=== PATIENT | female | born 1965 | race Caucasian/White ===

== ENCOUNTER → 2023-04-13 | Outpatient (CLI) | payer BC ==
--- NOTE | 2023-04-14 08:26 | MM ---
Reason for Exam: Screening (asymptomatic). Last screening mammogram was performed 12 month(s) ago. Patient History: Menarche at age 11. First Full-Term at age 26. Hysterectomy at age 46. Postmenopausal. Patient has history of breast feeding. Other cancer, age 43. Other cancer, age 48. Other cancer, age 52. Currently using Estrogen and Progesterone, starting at age 52. Risk Values: Deepika 5 year model risk: 1.5%. NCI Lifetime model risk: 8.3%. Prior Study Comparison: 02/16/2019 Bilateral Screening Mammogram, [facility] . 02/28/2019 Right Diagnostic Mammogram, [facility] . 03/18/2021 Bilateral Screening Mammogram, [facility] . 04/12/2022 Bilateral Screening Mammogram, [facility] . Tissue Density: The breast tissue is extremely dense which could obscure a lesion on mammography. Findings: Analyzed By CAD. There is no suspicious group of microcalcifications or new suspicious mass in either breast. Overall Assessment: Negative, BI-RAD 1 Management: Screening Mammogram of both breasts in 1 year. . Patient should continue monthly self-breast exams. A clinical breast exam by your physician is recommended on an annual basis. This exam should not preclude additional follow-up of suspicious palpable abnormalities. Note on Deepika scores and lifetime risk: 1. A Deepika score greater than 3% is considered moderate risk. If this is the case, consider specialist referral to assess eligibility for a risk reducing agent. 2. If overall lifetime risk for the development of breast cancer is 20% or higher, the patient may qualify for future screening with alternating mammogram and breast MRI. Electronically signed and approved by: Roger John M.D. Radiologis
--- NOTE | 2023-04-14 09:36 | BD ---
EXAMINATION TYPE: Axial Bone Density DATE OF EXAM: 04/13/2023 CLINICAL HISTORY: 57 years old Female. ICD-10 CODE: , M81.0 AGE-RELATED OSTEOPOROSI Height: 68 Weight: 162.1 FRAX RISK QUESTIONS: Alcohol (3 or more units per day): no Family History (Parent hip fracture): no Glucocorticoids (More than 3mos): no History of Fracture in Adulthood: no Secondary Osteoporosis: 1. Type 1 Diabetes: no 2. Hyperthyroidism: no 3. Menopause before 45: no 4. Malnutrition: no 5. Chronic liver disease: no Rheumatoid Arthritis: no Current Tobacco Use: no RISK FACTORS HISTORY OF: Hip Fracture (Right/Left): no Spine Fracture: no History of Wrist Fracture: no Surgery to Spine/Hip(right/left)/Wrist (right/left): no Family History of Osteoporosis: no Active: yes Diet low in dairy products/other sources of calcium: yes Postmenopausal woman: yes Take estrogen and/or progesterone medications: Ale dial How long: past 5 years Lost more than 2 inches in height since high school: yes Frequent falls: no Poor Health: no Hyperparathyroidism: no Adrenal Insufficiency: no MEDICATIONS: Prednisone or other steroids: no Thyroid Medications: no Osteoporosis Medications: Prolia every 6 months How Long: Past 5 years Additional Medications: BP Meds, Ale dial, Fish Oil, Additional History: EXAM MEASUREMENTS: Bone mineral densitometry was performed using the [place] Toxicology System. Bone mineral density as measured about the Lumbar spine is: ----- L1-L4(G/cm2): 0.985 T Score Values are as follows: ----- L1: -1.6 ----- L2: -2.2 ----- L3: -1.5 ----- L4: -1.4 ----- L1-L4: -1.6 Z Score Values are as follows: ----- L1: -0.8 ----- L2: -1.4 ----- L3: -0.6 ----- L4: -0.5 ----- L1-L4: -0.8 Baseline Study Bone mineral density about the R hip (g/cm2): 0.918 Bone mineral density about the L hip (g/cm2): 0.975 T Score values are as follows: -----R Neck: -1.1 -----L Neck: -0.8 -----R Total: -0.7 -----L Total: -0.3 Z Score values are as follows: -----R Neck: 0.0 -----L Neck: 0.3 -----R Total: 0.0 -----L Total: 0.4 Baseline Study FRAX%s: The graph provided illustrates a 7.1% chance for a major osteoporotic fx and a 0.4% chance fo r the hips probability for fx in 10 years time. IMPRESSION: Osteopenia (T Score between -2.5 and -1). There is slightly increased risk of fracture and the patient may be considered for treatment. Re-Screen 2-5 years. NOTE: T-SCORE=SD OF THE YOUNG ADULT MEAN.
== END | disposition home or self-care (01) ==
LOC: RADMAMWWP 07:13
PROVIDERS: ATTEND Family Medicine
DX: Z12.31 Encounter for screening mammogram for malignant neoplasm of breast (principal); M81.0 Age-related osteoporosis without current pathological fracture; M85.89 Other specified disorders of bone density and structure, multiple sites; Z78.0 Asymptomatic menopausal state
CPT/HCPCS: 77063; 77067; 77080

== ENCOUNTER 2024-01-18 08:30 | Day surgery (SDC) | payer BC ==
[2024-01-16 12:55] VITALS: BMI 22.1
[~2024-01-18 08:30] MED LIST: LIDOCAINE 1% (10MG/ML) FOR IV START INTRADERMA PRN
[2024-01-18 08:53] VITALS: RESP 16; TEMP 98.2
[2024-01-18] MEDS: LACTATED RINGERS 1,000 ML IV SCH (09:05)
[2024-01-18] MEDS ORDERED: PROPOFOL 10 MG/ML 20 ML VIAL IV ONE (09:30)
--- NOTE | 2024-01-18 09:35 | P.GSHP ---
History of Present Illness H&P Date: 01/18/24 CHIEF COMPLAINT: Colon screen HISTORY OF PRESENT ILLNESS: The patient is a 58-year-old female who presents for colon screen. Lower endoscopy was offered for further evaluation and management. PAST MEDICAL HISTORY: Please see list. PAST SURGICAL HISTORY: Please see list. MEDICATIONS: Please see list. ALLERGIES: Please see list. SOCIAL HISTORY: No illicit drug use FAMILY HISTORY: No reports of Crohn disease or ulcerative colitis. REVIEW OF ORGAN SYSTEMS: CONSTITUTIONAL: No reports of fevers or chills. PHYSICAL EXAM: VITAL SIGNS: Stable GENERAL: Well-developed pleasant in no acute distress. HEENT: No scleral icterus. Extraocular movements grossly intact. Moist buccal mucosa. NECK: Supple without lymphadenopathy. CHEST: Unlabored respirations. Equal bilateral excursions. CARDIOVASCULAR: Regular rate and rhythm. Distal 2+ pulses. ABDOMEN: Soft, nontender, nondistended. MUSCULOSKELETAL: No clubbing, cyanosis, or edema. ASSESSMENT: 1. Colon screen. PLAN: 1. Recommend proceeding with a lower endoscopy Past Medical History Past Medical History: Cancer, Hypertension Additional Past Medical History / Comment(s): skin CA History of Any Multi-Drug Resistant Organisms: None Reported Past Surgical History: Hysterectomy Additional Past Surgical History / Comment(s): colonoscopy,bunnionectomy,ectopic repair Past Anesthesia/Blood Transfusion Reactions: No Reported Reaction Additional Past Anesthesia/Blood Transfusion Reaction / Comment(s): no poblems with blood transfusions Smoking Status: Never smoker - Past Family History Mother Family Medical History: No Reported History Father Family Medical History: Cancer Additional Family Medical History / Comment(s): skin Medications and Allergies Home Medications Medication Instructions Recorded Confirmed Type Ascorbic Acid [Vitamin C] 1,000 mg PO DAILY 01/16/24 01/18/24 History Cholecalciferol [Vitamin D3 (25 25 mcg PO DAILY 01/16/24 01/18/24 History Mcg = 1000 Iu)] Denosumab [Prolia] 60 mg SQ Q180D 01/16/24 01/18/24 History Lisinopril-Hctz 10-12.5 mg 1 tab PO DAILY 01/16/24 01/18/24 History [Zestoretic 10-12.5] Magnesium 200 mg PO DAILY 01/16/24 01/18/24 History estradioL [Estrace] 1 mg PO DAILY 01/16/24 01/18/24 History Allergies Allergy/AdvReac Type Severity Reaction Status Date / Time No Known Allergies Allergy Verified 01/18/24 08:45 Surgical - Exam Vital Signs Temp Pulse Resp BP Pulse Ox 98.2 F 82 16 164/95 97 01/18/24 08:47 01/18/24 08:47 01/18/24 08:47 01/18/24 08:47 01/18/24 08:47
--- NOTE | 2024-01-18 09:58 | P.PCN ---
Date of Procedure: 01/18/24 Description of Procedure: PREOPERATIVE DIAGNOSIS: Colonoscopy screening. POSTOPERATIVE DIAGNOSIS: Colonoscopy screening. Internal hemorrhoids grade 3 External hemorrhoids, grade 3 OPERATION: Colonoscopy to the cecum, ileocecal valve and appendiceal orifice. SURGEON: Pebbles Hernandez MD. ANESTHESIA: MAC. INDICATIONS: The patient is a 58-year-old female who presents for colonoscopy screening. Last colonoscopy 10 years ago. Benefits and risks were described and informed consent was obtained. DESCRIPTION OF PROCEDURE: The patient had undergone Gatorade prep. The patient had been brought into the operating room and laid in the left lateral decubitus position. After adequate intravenous sedation, the rectum was examined with 2% lidocaine jelly. External hemorrhoids were encountered. The rectal tone was within normal limits. No lesions were palpated in the rectal vault. An Olympus colonoscope was advanced until the cecum, ileocecal valve and appendiceal orifice were clearly viewed. The colon was highly redundant. The prep was good. No scattered diverticulosis was encountered. No colonic polyps were found. No evidence of focal colitis was found. Retroflexion of the scope demonstrated grade 1 internal hemorrhoids without active bleeding or inflammation. The colon was desufflated. The patient had tolerated the procedure well. Withdrawal time was over 6 minutes. FINDINGS: Aronchick preparation quality scale 2 (1-5) Internal hemorrhoids, grade 3 External hemorrhoids, grade 3 No sigmoid diverticulosis Highly redundant sigmoid colon No arteriovenous malformations. No adenomatous polyps. No focal colitis. RECOMMENDATIONS: Lower endoscopy 10 years, 2033 Plan - Discharge Summary Discharge Rx Participant: No New Discharge Prescriptions: Continue estradioL [Estrace] 1 mg PO DAILY Lisinopril-Hctz 10-12.5 mg [Zestoretic 10-12.5] 1 tab PO DAILY Magnesium 200 mg PO DAILY Ascorbic Acid [Vitamin C] 1,000 mg PO DAILY Denosumab [Prolia] 60 mg SQ Q180D Cholecalciferol [Vitamin D3 (25 Mcg = 1000 Iu)] 25 mcg PO DAILY Discharge Medication List Ascorbic Acid [Vitamin C] 1,000 mg PO DAILY 01/16/24 [History] Cholecalciferol [Vitamin D3 (25 Mcg = 1000 Iu)] 25 mcg PO DAILY 01/16/24 [History] Denosumab [Prolia] 60 mg SQ Q180D 01/16/24 [History] Lisinopril-Hctz 10-12.5 mg [Zestoretic 10-12.5] 1 tab PO DAILY 01/16/24 [History] Magnesium 200 mg PO DAILY 01/16/24 [History] estradioL [Estrace] 1 mg PO DAILY 01/16/24 [History] Follow up Appointment(s)/Referral(s): Pebbles Hernandez MD [STAFF PHYSICIAN] - As Needed Patient Instructions/Handouts: Moderate Sedation (ED) Activity/Diet/Wound Care/Special Instructions: Repeat colonoscopy 10 years, 2033 or Cologuard Discharge Disposition: HOME SELF-CARE
[2024-01-18 10:19] VITALS: BP 124/79; PULSE 77
== END 2024-01-18 10:53 | disposition home or self-care (01) ==
LOC: ORWHC2ENDO 08:30
PROVIDERS: ATTEND Surgery Plastic and Reconstructive Surgery
DX: Z12.11 Encounter for screening for malignant neoplasm of colon (principal); K64.2 Third degree hemorrhoids; I10 Essential (primary) hypertension; K64.4 Residual hemorrhoidal skin tags; Z87.59 Personal history of other complications of pregnancy, childbirth and the puerperium; Z90.710 Acquired absence of both cervix and uterus; Z79.899 Other long term (current) drug therapy
CPT/HCPCS: 45378; J2704

== ENCOUNTER → 2024-04-24 | Outpatient (CLI) | payer BC ==
--- NOTE | 2024-04-25 13:57 | MM ---
Reason for Exam: Screening (asymptomatic). Last screening mammogram was performed 12 month(s) ago. Patient History: Menarche at age 11. First Full-Term at age 26. Hysterectomy at age 46. Postmenopausal. Patient has history of breast feeding. Other cancer, age 43. Other cancer, age 48. Other cancer, age 52. Currently using Estrogen and Progesterone, starting at age 52. Risk Values: Deepika 5 year model risk: 1.6%. NCI Lifetime model risk: 8.1%. Prior Study Comparison: 03/18/2021 Bilateral Screening Mammogram, [facility] . 04/12/2022 Bilateral Screening Mammogram, [facility] . 04/13/2023 Bilateral MG 3D screening mammo w/cad, [facility]. Tissue Density: The breasts are heterogeneously dense, which may obscure small masses. Findings: Analyzed By CAD. There is no suspicious group of microcalcifications or new suspicious mass in either breast. Overall Assessment: Benign, BI-RAD 2 Management: Screening Mammogram of both breasts in 1 year. . Patient should continue monthly self-breast exams. A clinical breast exam by your physician is recommended on an annual basis. This exam should not preclude additional follow-up of suspicious palpable abnormalities. Note on Deepika scores and lifetime risk: 1. A Deepika score greater than 3% is considered moderate risk. If this is the case, consider specialist referral to assess eligibility for a risk reducing agent. 2. If overall lifetime risk for the development of breast cancer is 20% or higher, the patient may qualify for future screening with alternating mammogram and breast MRI. Electronically signed and approved by: Roger John M.D. Radiologis
== END | disposition home or self-care (01) ==
LOC: RADMAMWWP 07:46
PROVIDERS: ATTEND Family Medicine
DX: Z12.31 Encounter for screening mammogram for malignant neoplasm of breast (principal); R92.333 Mammographic heterogeneous density, bilateral breasts; Z78.0 Asymptomatic menopausal state
CPT/HCPCS: 77063; 77067